=== PATIENT | male | born 1985 | race Two or more races ===

== ENCOUNTER 2021-04-07 12:28 | Emergency (ER) | payer SELFPAY ==
[~2021-04-07] VITALS: Ht 162.6 cm; Wt 90.9 kg
[2021-04-07 12:34] VITALS: BP 119/80; Ht 162.6 cm; Wt 90.9 kg
[2021-04-07] MEDS ORDERED: HYDROCODON-ACE1 EAC7 PO (14:44)
== END 2021-04-07 15:38 | disposition home or self-care (01) ==
LOC: D.ER 12:28
DX: S60.222A Contusion of left hand, initial encounter (principal); S80.12XA Contusion of left lower leg, initial encounter; T14.8XXA Other injury of unspecified body region, initial encounter; R07.81 Pleurodynia; W11.XXXA Fall on and from ladder, initial encounter; Y93.9 Activity, unspecified; Y92.9 Unspecified place or not applicable